=== PATIENT | male | born 1960 | race African-American/Black ===

== ENCOUNTER 2016-10-08 10:22 | Day surgery (SDC) | payer OTHER ==
[2016-10-08] VITALS (8 sets, daily range): BP systolic 136–179; BP diastolic 78–97; PULSE 70–98; RESP 13–27; O2SAT 94–98
[~2016-10-08] VITALS: Ht 175.3 cm; Wt 130.7 kg
[2016-10-08] MEDS: Lactated Ringer's 1,000 ML IV SCH ×2 (09:33→13:52)
[~2016-10-08 10:22] MED LIST: CeFAZolin Inj 3 GM in IV Premix IV SCH; IBUP200C PO; LISI-567 PO; Lactated Ringer's 1,000 ML IV SCH; MELO-259 PO; TRAM50TA2 PO
[2016-10-08] MEDS ORDERED: Succinylcholine Chloride 20 mg/mL 5 mL Inj ONE (10:23)
[2016-10-08] MEDS ORDERED: Ondansetron 2 mg/mL 2 mL Inj ONE (10:23)
[2016-10-08] MEDS ORDERED: fentaNYL-PF 50 mCg/mL 2 mL Inj ONE (10:23)
[2016-10-08] MEDS ORDERED: Propofol 10,000 mCg/mL 20 mL Inj ONE (10:23)
[2016-10-08] MEDS ORDERED: hydrALAZINE 20 mg/mL Inj ONE (10:23)
[2016-10-08] MEDS ORDERED: MetoCLOpramide 5 mg/mL 2 mL Inj ONE (10:23)
[2016-10-08] MEDS ORDERED: Lactated Ringer's 500 ML IV PRN (14:46)
[2016-10-08] MEDS ORDERED: Lactated Ringer's 1,000 ML IV SCH (14:46)
[2016-10-08] MEDS ORDERED: Atropine 0.4 mg/mL Inj IVPUSH PRN (14:50)
[2016-10-08] MEDS ORDERED: Phenylephrine 10,000 mCg/mL Inj IVPUSH PRN (14:50)
[2016-10-08] MEDS ORDERED: EPHEDrine Sulfate 50 mg/mL Inj IVPUSH PRN (14:50)
[2016-10-08] MEDS ORDERED: MetoCLOpramide 5 mg/mL 2 mL Inj IVPUSH PRN (14:50)
[2016-10-08] MEDS ORDERED: Ondansetron 2 mg/mL 2 mL Inj IVPUSH PRN (14:50)
[2016-10-08] MEDS ORDERED: Labetalol 5 mg/mL 20 mL Inj IV PRN (14:50)
[2016-10-08] MEDS ORDERED: fentaNYL-PF 50 mCg/mL 2 mL Inj IVPUSH PRN (14:50)
[2016-10-08] MEDS ORDERED: HYDROmorphone 1 mg/mL Inj IVPUSH PRN (14:50)
[2016-10-08] MEDS ORDERED: Dexamethasone 4 mg/mL Inj IVPUSH PRN (14:50)
[2016-10-08] MEDS ORDERED: Ketorolac 15 mg/mL Inj IVPUSH ONE (15:35)
--- NOTE | 2016-10-08 15:42 | PCM.ORTHOP ---
Orthopedic Operative Report Date of Service: Oct 08, 2016 Pre Operative Diagnosis Right shoulder rotator cuff tear, impingement syndrome, acromioclavicular joint arthritis, labral tearing Post Operative Diagnosis Right shoulder partial rotator cuff tear, impingement syndrome, acromioclavicular joint arthritis, synovitis, labral tearing Procedure Right shoulder arthroscopy, rotator cuff debridement, subacromial decompression , distal clavicle excision, extensive debridement Surgeon Surgeon: Jayesh Gonzalez MD Assistants: Liz Singh Indication for Procedure Right shoulder rotator cuff tear Findings per dictation Details of Procedure PSYCHOLOGY TEACHER SURGEON: During the operation, the services of physician surgical garment inspector were medically indicated and necessary to provide exposure of the operative site for the surgical procedure and to maintain the limb in a proper position to carry out the operation safely and efficiently. Without the qualified compliance assistant being present, it would have extended the operative procedure and made the procedure technically more difficult to perform. 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 The risks, benefits, and alternatives of surgery were discussed with the patient. The risks included but were not limited to infection, bleeding, damage to vessels and nerves, loss of motion, continued pain, complications due to anesthesia including myocardial infarction, stroke, , etc. The patient stated understanding of the nature of the surgical procedure and gave written and verbal consent to proceed. PROCEDURE: The patient was brought into the operating room and placed supine on the operating room table. A interscalene block was placed in the right shoulder for postoperative pain management, followed by the administration of general anesthesia. . The patient was then placed into the lateral decubitus position with the right side up. An axillary role was placed and the legs were padded as necessary to avoid pressure points. The patient was maintained in position with a beanbag evacuation device. A thorough examination of the right shoulder under anesthesia was performed. The patient had 160 degrees of forward elevation and 140 degrees of abduction. In 90 degrees of abduction there was 70 degrees of external rotation and 60 degrees of internal rotation. The shoulder was stable to load-shift testing. The right upper extremity was then prepped and draped in the usual fashion. The arm was suspended with a well-padded sleeve with eight/ten pounds of balanced suspension in the arthroscopic position. A standard posterior portal was made inferior and medial to the posterior corner of the acromion. The incision was made only through skin. The trocar was advanced through the soft tissue with a blunt-tipped obturator. This was inserted into the glenohumeral joint without difficulty. The 4 mm arthroscope was placed through the cannula and attached to the video monitor system. Inflow was achieved using the arthroscopic pump. The pressure was maintained at 35-40 mm of mercury throughout the entire procedure. Once the arthroscope confirmed visualization within the shoulder joint, it was advanced anteriorly into the rotator interval beneath the biceps tendon. A Wissinger wally was then used to create the anterior portal from inside-out. A second anterior stab wound incision was made only through skin and an anterior cannula was placed. A routine arthroscopic survey was begun. Survey: Anterior labral tearing extensive,[id number] RTC tear anteriorly, minimal biceps tendinitis, 5 mm anterior inferior subacromial spur, acromioclavicular arthritis An extensive debridement was then performed of unstable cartilage, tendon, degenerative labral tissue , all debrided back to stable tissue The arm was then placed in the bursoscopy position. Complex surgical procedure: This was an extremely complex surgical procedure which took approximately 30-40 % longer to complete than a standard repair. Without the use of a qualified medical assistant dermatology, this surgical procedure would have taken even considerably longer and been unable to be performed arthroscopically. Through a separate fascial incision, an extensive debridement of the subacromial space was then performed consisting of frayed CA ligament , inflamed bursal tissue, bursal sided tendon fraying. Adelaida procedure: Within the subacromial space there was marked fraying on the undersurface of the coracoacromial ligament consistent with impingement. A decision was thus made to proceed with arthroscopic subacromial decompression. Using an RF wand and a motorized shaver the coracoacromial ligament was recessed from the anterior acromial edge. An orientation trough was made along the lateral margin of the acromion, from the anterior corner back to the posterior margin of the AC joint. A sequential subacromial smoothing was carried out, removing approximately [default value] mm of bone corresponding to the preoperative radiographs. Once completed, the AC joint capsule was opened. There was inferior spurring as well as synovitis and arthritic changes at the AC joint and a decision was made to proceed with distal clavicle excision. Using a motorized bur working initially from posteriorly and then anteriorly, the outer 10 mm of the distal clavicle were excised. The arthroscope was then positioned anteriorly within the AC resection site confirming an excellent level of resection. The rotator cuff was mostly on the bursal side with less than 50% thickness and decision was made for debridement only. The arm was placed through a range of motion and the rotator cuff and humeral head moved well as a unit. There was no further evidence of impingement. The subacromial space was irrigated with an additional liter of lactated Ringer s solution and excess fluid was drained. The arthroscopic portals were closed with #4-0 Nylon and Steri-Strips. A dry sterile dressing was applied, followed by a neutral rotation sling. The patient was awakened in the operating room and transported to the recovery room in satisfactory condition. The patient appeared to tolerate the procedure well. There were no complications noted. Nonweightbearing to affected upper extremity. Please leave sling on at all times. You may remove sling 3 times a day to move the elbow wrist and fingers. You may start doing some pendulum exercises as tolerated for gentle range of motion Please keep the affected extremity elevated when possible. You may use ice and/or heat as needed for comfort. Follow-up in 2 weeks with me with 2-view xrays and for suture removal and Steri -Strip application, start physical therapy phase 1. Follow-up with me at 6 weeks, 12 weeks, with progression of physical therapy as per my protocol ( please ask me for protocol if needed). Grafts, Implants: None Complications There were no periprocedural complications identified. Condition Stable Anesthetic Administered: GA Output, Estimated Blood Loss: 5 Blood Admin during surgery: No Surgical Cast or Splint: Other Surgical Specimen Removed: No Specimen sent to Pathology: No copies to: Jayesh Gonzalez MD, Christopher L MD Oct 08, 2016 15:42
--- NOTE | 2016-10-08 16:36 | PCM.HPANE ---
Patient Data Date of Service: Oct 08, 2016 Surgeon Admitting Provider: Attending Provider:Jayesh Gonzalez MD Primary Care Physician:Ashley Roldan MD Other Provider:Cari Greenwood Anesthesia Reason for Visit Right Rotator Cuff Tear Ht/WT & BMI Height (Feet): 5 Height (Inches): 9 Weight (Kilograms): 130.7 Body Mass Index 42.00 Allergies Coded Allergies: No Known Allergies (Verified Allergy, Unknown, 10/02/16) Past Anesthesia History Anesthesia History: Denies:: Abnormal Airway, Anesthesia Reactions (never has had surgery), Difficult Intubation, Fam Anesthesia Reaction, Fam Malignant Hypertherm Diabetes History Hx Diabetes?: No MRSA MRSA: No Medications Home Meds Incl Beta Magaly: No Reported Medications Tramadol 50 Mg [id number] Mg PO Q4H PRN For Pain Ref 0 10/02/16 Meloxicam 7.5 Mg Tablet7.5 Mg PO DAILY 30 Days Ref 0 09/18/16 Lisinopril 20 Mg [id number] Mg PO DAILY 30 Days Ref 0 09/18/16 Ibuprofen 200 Mg [id number] Mg PO QID PRN For Pain Ref 0 09/18/16 History History of ENT Problems?: No HEENT History: Denies:: Abnormal Airway Cataracts Difficult Intubation Dysphagia Glaucoma Hearing Problem Sinus Problem TMJ Denture Type: None Teeth Condition: Within Normal Limits Hx of Heart Problems?: No Cardiovascular History: Positive for:: Hypertension Denies:: AICD Abdominal Aortic Aneurism Atrial Fibrillation Cardiac Surgery Chest Pain Congestive Heart Failure Coronary Artery Disease Edema Heart Murmur Irregular Heartbeat Pacemaker Peripheral Vascular Rheumatic Fever Thrombophlebitis Valvular Heart Disease Hx of Respiratory Problem?: Yes Respiratory History: Positive for:: Use of C-PAP Machine Denies:: Asthma COPD Chest Surgery Cough Dyspnea Emphysema Hemoptysis Pneumonia Pulmonary Embolism Tuberculosis Hx Neurologic Problems?: No Neurological History: Denies:: Alzheimer's Disease CVA Dementia Dizziness Headaches Multiple Sclerosis Parkinson's Disease Seizures TIA Hx of GI Problems?: No Hx of Problems?: No Genitourinary History: Denies:: HX of Hemodialysis HX of Peritoneal Dialysis: No Male Hx: Denies:: Prostate Problems Scrotal Mass Testicular Surgery Skin History: Denies:: History Skin Disorders? Pressure Ulcers Hx Musculoskeletal Problems?: No Hx of Psycho/Social Problems?: No Hx Surgeries?: No Other History: Denies:: Cancer Endocrine Disease Hospitalization Thyroid Disease History Blood Transfusions: Positive for:: Accept Blood Products? Denies:: Blood Transfusions Hx Diabetes: No Hx Alcohol Use: No ("occasionally")Hx Substance Use: No Smoking Status: Current Every Day Smoker Never Smoker Have You Smoked inLast 12 mo: Yes (cigars) Stop/Bang Treated for Sleep Apnea?: Yes Do You Have a CPAP Machine?: Yes S-Snoring: Do You Snore Loudly: No T-Tired: feel tired, fatigued: No O-Obsered: Observed not breath: No P-Blood Pressure: treated: Yes B- Body Mass Index > 35 kg/m2: Yes A- Age over 50: Yes N- Neck Large Circumference: Yes G- Gender Male: Yes ELIF Total Score: 5 ELIF Risk Assessment: High Risk, =/>3 Yes ELIF Category 2: Yes Risk Assessment Category Category 1A: Patient has history of documented sleep apnea, and HAS NOT received any narcotic, sedative or anesthesia administration during this stay. Category 1B: Patient has history of documented sleep apnea, and HAS received any narcotic , sedative or anesthesia administration during this stay Category 2: Patient has SUSPECTED Obstructive Sleep Apnea, and HAS received any narcotic , sedative or anesthesia administration during this stay. Category 3: Patient has SUSPECTED Obstructive Sleep Apnea and HAS NOT received narcotic, sedative or anesthesia administration during this stay. Category 4: Outpatient in Procedural Areas with known sleep apnea or who screen positive for High Risk via the STOP/BANG questionnaire. Exam Exam Vital Signs Vital Signs Date Time Temp Pulse Resp B/P Pulse Ox O2 Delivery O2 Flow Rate FiO2 10/08/16 10:39 36.7 93 18 141/85 97 Room Air General Appearance: Alert, Oriented X3, Cooperative HEENT/AIRWAY: MP 2, Neck Movement (Full), Mouth Opening (Wide) Lungs: Clear to Auscultation, Normal Air Movement Heart: Regular Rate/Rhythm, Normal S1 Meds/Labs/Diagnostics Admission Meds Current Medications Lactated Ringer's (Lr) 1,000 ml @ 120 mls/hr Q8H20M IV Last administered on t 09:33; Start 10/08/16 at 05:00; Stop 10/08/16 at 13:19 Plan Impression Patient chart reviewed, patient interviewed and anesthestic plan with risks, benefits, and alternatives discussed, and informed consent obtained. NPO per Anesth. Guidelines: Yes ASA Physical Status: ASA3 Severe Disease Anesthetic Plan: GA Bene/Risks/Altern/Consents: Yes HP Complete Prior to Induction: Yes Ruben Arizmendi MD Oct 08, 2016 13:20
--- NOTE | 2016-10-08 16:37 | PCM.ANEP1 ---
Post Anesthesia PACU Phase 1 Assessment Date of Service: Oct 08, 2016 Vital Signs Vital Signs Date Time Temp Pulse Resp B/P Pulse Ox O2 Delivery O2 Flow Rate FiO2 10/08/16 16:26 91 13 150/87 94 Room Air 10/08/16 16:18 98 14 163/89 94 Room Air 10/08/16 16:05 94 13 179/96 98 Simple Mask 8 10/08/16 16:01 97 18 174/97 96 Simple Mask 8 10/08/16 15:52 36.0 85 27 159/83 96 Simple Mask 8 10/08/16 10:39 36.7 93 18 141/85 97 Room Air Anesthetic Administered: GA Level of Alertness: Sleepy, easy to arouse VERMA's with Equal Strength: Yes Pain: No Nausea or Vomiting: No CV Function & Hydration Stable: Yes Airway Device: Nasal Airway Oxygen Delivery: Simple Mask Lungs: Normal Air Movement PACU Phase 2 Assessment Complications: Yes Follow up Care: N/A Patient Instructions Provided: N/A Ruben Arizmendi MD Oct 08, 2016 16:37
[2016-10-08] MEDS: HYDROcodone-APAP 5-325 mg Tablet PO PRN ×2 (16:50→17:12)
== END 2016-10-08 23:59 | disposition home or self-care (01) ==
LOC: SAS 10:22
PROVIDERS: ATTEND Orthopaedic Surgery
DX: M75.121 Complete rotator cuff tear or rupture of right shoulder, not specified as traumatic (principal); M75.41 Impingement syndrome of right shoulder; M19.011 Primary osteoarthritis, right shoulder; I10 Essential (primary) hypertension; F17.290 Nicotine dependence, other tobacco product, uncomplicated
CPT/HCPCS: 29823; 29824; 29826; 76942; J0330; J0360; J0690; J2175; J2250; J2405; J2704; J2765; J3010; J7120